=== PATIENT | female | born 1985 | race Two or more races ===

== ENCOUNTER 2017-05-04 08:00 | Inpatient (IN) | payer MEDICAID ==
[2017-05-04] VITALS (14 sets, daily range): BP systolic 97–135; BP diastolic 54–88
[~2017-05-04] VITALS: Ht 162.6 cm; Wt 88.5 kg
[2017-05-04] MEDS: LACTATED RINGER'S 1,000 ML IV SCH ×2 (08:53→18:05)
[2017-05-04 09:20] LABS: Basophils # (auto) 0 uL; Basophils % (auto) 0.4 % (0.0-2.0); Eosinophils # (auto) 0.1 uL; Eosinophils % (auto) 0.8 % (0.0-7.0); Hematocrit 33.7 % (36.0-46.0); Hemoglobin 11.2 g/dL (12.2-16.2); Lymphocytes # (auto) 1.5 uL; Lymphocytes % (auto) 18.6 % (10.0-50.0); Mean Corpuscular Hemoglobin 27.9 pg (28.0-32.0); Mean Corpuscular Hgb Conc. 33.1 g/dL (32.0-36.0); Mean Corpuscular Volume 84.3 fL (80.0-100.0); Monocytes # (auto) 0.5 uL; Monocytes % (auto) 6.7 % (0.0-12.0); Neutrophils % (auto) 73.5 % (37.0-80.0); Platelet Count (auto) 203 10^3/uL (140-450); Red Cell Distribution Width 14.7 % (11.8-14.3); White Blood Cell 8.2 10^3/uL (4.4-10.8)
[2017-05-04] MEDS ORDERED: PREN-96 PO (09:21)
[2017-05-04 09:42] LABS: Urine Bacteria FEW /hpf (None Seen); Urine Blood Negative /uL (Negative); Urine Mucus FEW (None Seen); Urine Specific Gravity 1.015 (1.001-1.035); Urine WBC 1 /hpf (0 - 5)
[2017-05-04 09:49] LABS: INR 0.92 (0.9-1.15); Partial Thromboplastin Time 27.9 sec (22.64-33.71)
[2017-05-04 09:50] LABS: Albumin 2.6 g/dL (3.4-5.0); BUN/Creatinine Ratio 15.7; Bilirubin, Total 0.2 mg/dL (0.2-1.0); Calcium 8.6 mg/dL (8.5-10.1); Potassium 3.9 mmol/L (3.5-5.1); Total Protein 6.9 g/dL (6.4-8.2)
[2017-05-04] MEDS ORDERED: TETRACAINE 1% INJ 2 ML VIAL IJ ONE (11:36)
[2017-05-04] MEDS ORDERED: MORPHINE SULF(PF) 0.5MG/ML 10ML VIAL ONE (12:47)
[2017-05-04] MEDS ORDERED: fentaNYL CITRATE 100 MCG/2 ML VL ONE (12:48)
[2017-05-04] MEDS ORDERED: SODIUM CHLORIDE LOCK 10 ML ONE (12:48)
[2017-05-04] MEDS ORDERED: MIDAZOLAM HCL 1MG/1ML-2 ML VIAL ONE (12:48)
[2017-05-04] MEDS ORDERED: ceFAZolin 1GM VL ONE (12:48)
[2017-05-04] MEDS ORDERED: OXYTOCIN 10 UNIT/ML 10ML VIAL ONE (12:48)
[2017-05-04] MEDS ORDERED: LACT. RINGERS/OXYTOCIN 20UNITS 1,000 ML IV SCH (12:57)
[2017-05-04] MEDS ORDERED: ONDANSETRON HCL 4 MG/2 ML VIAL IV PRN ×2 (13:00→13:15)
[2017-05-04] MEDS ORDERED: MORPHINE SULF INJ 2 MG/ML SYRINGE 1ML IV PRN (13:00)
[2017-05-04] MEDS ORDERED: ceFAZolin 1GM/50ML 50 ML IV SCH (13:00)
[2017-05-04] MEDS ORDERED: HYDROmorphone HCL 2 MG/ML VL IV PRN (13:15)
[2017-05-04] MEDS ORDERED: NALOXONE HCL 0.4 MG/ML VIAL IV PRN (13:15)
[2017-05-04] MEDS ORDERED: diphenhdrAMINE HCL 50 MG/1 ML VL IV PRN (13:15)
[2017-05-04] MEDS ORDERED: KETOROLAC TROMETH 30 MG/ML 1ML VIAL IV ONE (13:15)
[2017-05-04] MEDS ORDERED: METOCLOPRAMIDE HCL 5MG/ml INJ 2ml VIAL IV ONE (13:15)
[2017-05-04] MEDS: KETOROLAC TROMETH 30 MG/ML 1ML VIAL IV PRN (17:36)
[2017-05-04 19:48] LABS: Basophils # (auto) 0 uL; Basophils % (auto) 0.3 % (0.0-2.0); Eosinophils # (auto) 0 uL; Eosinophils % (auto) 0.3 % (0.0-7.0); Hematocrit 34.8 % (36.0-46.0); Hemoglobin 11.6 g/dL (12.2-16.2); Lymphocytes # (auto) 1.3 uL; Lymphocytes % (auto) 10.8 % (10.0-50.0); Mean Corpuscular Hemoglobin 28.1 pg (28.0-32.0); Mean Corpuscular Hgb Conc. 33.2 g/dL (32.0-36.0); Mean Corpuscular Volume 84.8 fL (80.0-100.0); Monocytes # (auto) 0.7 uL; Monocytes % (auto) 5.8 % (0.0-12.0); Neutrophils # (auto) 9.6 uL; Neutrophils % (auto) 82.8 % (37.0-80.0); Platelet Count (auto) 203 10^3/uL (140-450); Red Blood Cells 4.11 10^6/uL (4.0-5.20); White Blood Cell 11.6 10^3/uL (4.4-10.8)
[2017-05-04] MEDS: ceFAZolin 1GM/50ML 50 ML IV SCH (21:13)
[2017-05-04] MEDS ORDERED: MORPHINE SULFATE 4 MG/ML SYR/VIAL ONE (23:41)
[2017-05-05] VITALS (7 sets, daily range): BP systolic 85–108; BP diastolic 49–79
[2017-05-05] MEDS: LACTATED RINGER'S 1,000 ML IV SCH ×3 (01:00→12:29)
[2017-05-05] MEDS: KETOROLAC TROMETH 30 MG/ML 1ML VIAL IV PRN (01:33)
[2017-05-05] MEDS: ceFAZolin 1GM/50ML 50 ML IV SCH ×2 (04:36→12:44)
[2017-05-05] MEDS ORDERED: HYDROcodone-ACET 5/325MG TAB PO PRN (06:45)
[2017-05-05 07:57] LABS: Basophils # (auto) 0 uL; Basophils % (auto) 0.4 % (0.0-2.0); Eosinophils # (auto) 0 uL; Eosinophils % (auto) 0.4 % (0.0-7.0); Hematocrit 35.7 % (36.0-46.0); Hemoglobin 11.8 g/dL (12.2-16.2); Lymphocytes # (auto) 1.1 uL; Lymphocytes % (auto) 11.4 % (10.0-50.0); Mean Corpuscular Hemoglobin 28.3 pg (28.0-32.0); Mean Corpuscular Hgb Conc. 32.9 g/dL (32.0-36.0); Mean Corpuscular Volume 85.9 fL (80.0-100.0); Monocytes # (auto) 0.7 uL; Monocytes % (auto) 7.2 % (0.0-12.0); Neutrophils # (auto) 7.8 uL; Neutrophils % (auto) 80.6 % (37.0-80.0); Platelet Count (auto) 219 10^3/uL (140-450); Red Blood Cells 4.16 10^6/uL (4.0-5.20); Red Cell Distribution Width 15.1 % (11.8-14.3); White Blood Cell 9.7 10^3/uL (4.4-10.8)
[2017-05-05] MEDS ORDERED: TETANUS-DIPTH-ACEL PERTUSSIS 0.5ML SYRG IM ONE (11:30)
[2017-05-05] MEDS: DOCUSATE SOD 100 MG CAP PO SCH ×2 (12:43→21:59)
[2017-05-05] MEDS: IBUPROFEN 800 MG TAB PO PRN ×2 (12:43→20:50)
[2017-05-05] MEDS: HYDROcodone-ACET 5/325MG TAB PO PRN (18:55)
[2017-05-06] MEDS: HYDROcodone-ACET 5/325MG TAB PO PRN ×3 (00:41→13:23)
[2017-05-06 03:30] VITALS: BP 91/60
[2017-05-06] MEDS: IBUPROFEN 800 MG TAB PO PRN ×2 (04:25→19:10)
[2017-05-06 07:00] VITALS: BP 101/63
[2017-05-06 11:00] VITALS: BP 119/73
[2017-05-06] MEDS: DOCUSATE SOD 100 MG CAP PO SCH ×2 (13:22→22:11)
[2017-05-06 15:00] VITALS: BP 100/62
[2017-05-06 19:31] VITALS: BP 114/71
[2017-05-06 23:30] VITALS: BP 109/76
[2017-05-07 03:32] VITALS: BP 123/84
[2017-05-07] MEDS: IBUPROFEN 800 MG TAB PO PRN (05:10)
[2017-05-07] MEDS ORDERED: TETANUS-DIPTH-ACEL PERTUSSIS 0.5ML SYRG IM ONE (07:30)
[2017-05-07 07:39] VITALS: BP 116/71
== END 2017-05-07 08:15 | disposition home or self-care (01) | DRG 540 ==
LOC: LDRP 08:00
PROVIDERS: ADMIT Obstetrics & Gynecology; ATTEND Obstetrics & Gynecology
PROC: 10D00Z1 Extraction of Products of Conception, Low, Open Approach (ICD-10-PCS; 2017-05-04)
PROC: 0UL70CZ Occlusion of Bilateral Fallopian Tubes with Extraluminal Device, Open Approach (ICD-10-PCS; principal; 2017-05-04 12:11)
DX: O34.211 Maternal care for low transverse scar from previous cesarean delivery (principal); Z23 Encounter for immunization; Z30.2 Encounter for sterilization; Z37.0 Single live birth; Z3A.00 Weeks of gestation of pregnancy not specified
CPT/HCPCS: 36415; 51702; 80053; 81001; 85025; 85610; 85730; 86850; 86900; 86901; 90472; 90715; 94762; 96361; 96365; 96366; 96374; 96375; J0690; J1885; J2250; J2590